=== PATIENT | female | born 1960 | race Caucasian/White ===

== ENCOUNTER 2019-05-29 04:33 | Inpatient (IN) | payer OTHER ==
[~2019-05-29] VITALS: Ht 170.2 cm; Wt 94.4 kg
[2019-05-29] MEDS ORDERED: IPRATROPIUM BROM 0.5 MG/2.5ML INH SOL HHN ONE (07:00)
[2019-05-29] MEDS ORDERED: ALBUTEROL SULF 2.5 MG/0.5ML(0.5%) NEB SOLN HHN ONE (07:00)
[2019-05-29] MEDS ORDERED: methylPREDNISolone SOD SUCC 125 MG/2 ML VL IV ONE (07:00)
[2019-05-29] MEDS ORDERED: LEVOFLOXACIN 500MG 100 ML IV ONE (07:00)
[2019-05-29 07:30] LABS: Basophils # (auto) 0 uL; Basophils % (auto) 0.3 % (0.0-2.0); Eosinophils # (auto) 0.1 uL; Eosinophils % (auto) 0.7 % (0.0-7.0); Lymphocytes # (auto) 2.4 uL; Mean Corpuscular Hemoglobin 31.1 pg (28.0-32.0); Mean Corpuscular Hgb Conc. 34.2 g/dL (32.0-36.0); Mean Corpuscular Volume 90.9 fL (80.0-100.0); Neutrophils # (auto) 10.7 uL; Platelet Count (auto) 340 10^3/uL (140-450); Red Blood Cells 4.51 10^6/uL (4.0-5.20); Red Cell Distribution Width 13.1 % (11.8-14.3); White Blood Cell 14.3 10^3/uL (4.4-10.8)
[2019-05-29 07:38] VITALS: BP 143/82
[2019-05-29 07:41] LABS: Albumin 3.4 g/dL (3.4-5.0); Anion Gap 15 (5-15); Blood Urea Nitrogen 12 mg/dL (7-18); Calcium 8.5 mg/dL (8.5-10.1); Carbon Dioxide 21 mmol/L (21-32); Chloride 107 mmol/L (98-107); Glucose 237 mg/dL (74-106); Magnesium 1.7 mg/dL (1.6-2.6); Potassium 3.2 mmol/L (3.5-5.1); Sodium 143 mmol/L (136-145)
[2019-05-29 07:43] LABS: Alanine Aminotransferase 114 U/L (13-56); Aspartate Aminotransferase 37 U/L (15-37); BUN/Creatinine Ratio 16.9; GFR African American 108 mL/min; GFR Non-African American 89 mL/min
[2019-05-29 07:48] LABS: Alkaline Phosphatase 127 U/L (45-117); Bilirubin, Total 0.8 mg/dL (0.2-1.0); Total Protein 7.2 g/dL (6.4-8.2)
[2019-05-29 07:51] LABS: Lactic Acid w/Reflex 2.5 mmol/L (0.4-2.0)
[2019-05-29] MEDS ORDERED: NITROGLYCERIN 0.4 MG SL TAB SL PRN (10:30)
[2019-05-29] MEDS ORDERED: MORPHINE SULF INJ 2 MG/ML SYRINGE 1ML IV PRN (10:30)
[2019-05-29] MEDS: DOXYCYCLINE 100MG/250ML 250 ML IV SCH ×2 (10:45→22:30)
[2019-05-29] MEDS ORDERED: TEMAZEPAM 15 MG CAP PO PRN (10:45)
[2019-05-29] MEDS ORDERED: ALBUTEROL SULF 2.5 MG/0.5ML(0.5%) NEB SOLN NEB PRN (10:45)
[2019-05-29] MEDS ORDERED: MORPHINE SULFATE 4 MG/ML SYR/VIAL IV PRN (10:45)
[2019-05-29] MEDS ORDERED: LACTULOSE 20Gm/30ML SOLN PO PRN (10:45)
[2019-05-29] MEDS ORDERED: ACETAMINOPHEN 500 MG TAB PO PRN (10:45)
[2019-05-29] MEDS ORDERED: HYDROcodone-ACET 5/325MG TAB PO PRN (10:45)
[2019-05-29] MEDS ORDERED: POTASSIUM EFFERVESENT TAB 25 MEQ PO ONE (10:45)
[2019-05-29] MEDS ORDERED: DEXTROSE (50%) 50ML SYRG IV PRN (10:45)
[2019-05-29] MEDS ORDERED: PROMETHAZINE HCL 25 MG/ML 1ML IV PRN (10:45)
[2019-05-29] MEDS ORDERED: ENALAPRIL MALEATE 2.5 MG TAB PO ONE (11:00)
[2019-05-29] MEDS ORDERED: FUROSEMIDE 40 MG/4 ML VIAL IV ONE (11:00)
[2019-05-29] MEDS ORDERED: PANTOPRAZOLE 40 MG TAB PO ONE (11:00)
[2019-05-29] MEDS ORDERED: ENOXAPARIN SOD 40 MG/0.4 ML SYRINGE SC ONE (11:00)
[2019-05-29 11:02] LABS: Urine Bacteria NONE SEEN /hpf (None Seen); Urine Blood Negative /uL (Negative); Urine Specific Gravity 1.014 (1.001-1.035); Urine WBC <1 /hpf (0 - 5)
[2019-05-29] MEDS ORDERED: methylPREDNISolone SOD SUCC 125 MG/2 ML VL ONE (11:18)
[2019-05-29] MEDS: methylPREDNISolone SOD SUCC 40 MG/ML VL IV SCH ×3 (11:31→23:50)
[2019-05-29 11:39] LABS: Alcohol, Urine < 3.0 mg/dL (0-5); Amphetamine Screen, Urine NEGATIVE (NEGATIVE); Barbiturate Scree,Urine NEGATIVE (NEGATIVE); Benzodiazephine Screen, Urine NEGATIVE (NEGATIVE); Cannabinoid Screen, Urine NEGATIVE (NEGATIVE); Cocaine Screen, Urine NEGATIVE (NEGATIVE); Opiate Scree,Urine NEGATIVE (NEGATIVE); Phencyclidine Screen, Urine NEGATIVE (NEGATIVE)
[2019-05-29] MEDS: ALBUTEROL SULF 2.5 MG/0.5ML(0.5%) NEB SOLN NEB SCH ×2 (12:00→18:22)
[2019-05-29] MEDS: IPRATROPIUM BROM 0.5 MG/2.5ML INH SOL NEB SCH ×2 (12:00→18:22)
--- NOTE | 2019-05-29 12:00 | NUR ---
PT. REQUESTING TO COME OFF OF BIPAP. PT. STATES THAT SHE IS CLOSTERPHOBIC. PLACED PT. ON 3LPM NC AT THIS TIME,SPO2 94%,HR =87.RR=28. NO RESP. DISTRESS NOTED AT THIS TIME, WILL CONTINUE TO MONITOR RESP. STATUS.
[2019-05-29] MEDS: InsuLIN REG 1unit/0.01ml Soln (100units/ml) SC SCH ×4 (12:12→23:51)
[2019-05-29] MEDS: ACCU-CHEK COMFORT CURVE STRIP VI SCH ×4 (12:12→23:51)
[2019-05-29] MEDS: SODIUM CHLOR 0.9% PF (SALINE LOCK) 10ML VIAL/SYR IV SCH ×2 (14:31→21:52)
[2019-05-29] MEDS ORDERED: IOHEXOL 350 MG/ML 100ML IJ ONE (16:20)
[2019-05-29] MEDS ORDERED: InsuLIN REG 1unit/0.01ml Soln (100units/ml) IV ONE (17:15)
[2019-05-29] MEDS: INSULIN LANTUS (GLARGINE) 1 /0.01ml (100units/ml) SC SCH ×2 (17:35→21:51)
[2019-05-30] VITALS (7 sets, daily range): BP systolic 123–135; BP diastolic 57–84
[2019-05-30] MEDS: ALBUTEROL SULF 2.5 MG/0.5ML(0.5%) NEB SOLN NEB SCH ×4 (00:30→19:10)
[2019-05-30] MEDS: IPRATROPIUM BROM 0.5 MG/2.5ML INH SOL NEB SCH ×4 (00:30→19:09)
--- NOTE | 2019-05-30 03:20 | NUR ---
Telemetry admit from ANA MONIQUEDEMARCO COE admitted to Telemetry unit after SBAR received. Patient oriented to SRINATH PAYAN, RN primary RN, unit, room, bed, and unit policies regarding patient care and visiting hours. Patient now on continuous telemetry monitoring, tele box # [id number] and telemetry reading on arrival to unit is SR. Patient placed on bedside oxygen, weighed by bedscale and encouraged to call if they need something. All questions and concerns addressed, patient verbalized understanding. Note:
[2019-05-30] MEDS: InsuLIN REG 1unit/0.01ml Soln (100units/ml) SC SCH ×5 (03:48→20:41)
[2019-05-30] MEDS: ACCU-CHEK COMFORT CURVE STRIP VI SCH ×5 (03:48→20:42)
[2019-05-30] MEDS ORDERED: METF-370 PO (05:15)
[2019-05-30] MEDS ORDERED: GLYB2.5T8 PO (05:15)
--- NOTE | 2019-05-30 06:05 | NUR ---
Respiratory note: PATIENT FOUND OFF CPAP AND ON R/A, SPO2 95%. NO DISTRESS NOTED
[2019-05-30] MEDS: SODIUM CHLOR 0.9% PF (SALINE LOCK) 10ML VIAL/SYR IV SCH ×3 (06:17→22:45)
[2019-05-30] MEDS: methylPREDNISolone SOD SUCC 40 MG/ML VL IV SCH ×3 (06:17→17:48)
[2019-05-30] MEDS: INSULIN LANTUS (GLARGINE) 1 /0.01ml (100units/ml) SC SCH ×2 (06:18→22:45)
--- NOTE | 2019-05-30 08:00 | NUR ---
Opening Shift Note Assumed care of patient, awake, alert and oriented X4. No S/S of distress/SOB or pain. O2 @ 2 LPM via nasal cannula with sats @ 96%. Tele# 39, sinus rhythm @ 77 bpm. IV to left antecubital, 20 gauge, patent and saline locked. Instructed on POC and to call for assist PRN, verbalized understanding. Bed locked, in lowest position, devante light within reach, will continue to monitor for changes Q1hr and PRN.
[2019-05-30 08:18] LABS: Basophils # (auto) 0 uL; Basophils % (auto) 0.2 % (0.0-2.0); Eosinophils # (auto) 0 uL; Hematocrit 39.6 % (36.0-46.0); Hemoglobin 13.2 g/dL (12.2-16.2); Lymphocytes # (auto) 0.8 uL; Lymphocytes % (auto) 7.2 % (10.0-50.0); Mean Corpuscular Hemoglobin 30.2 pg (28.0-32.0); Mean Corpuscular Hgb Conc. 33.4 g/dL (32.0-36.0); Mean Corpuscular Volume 90.4 fL (80.0-100.0); Monocytes # (auto) 0.4 uL; Monocytes % (auto) 3.3 % (0.0-12.0); Neutrophils # (auto) 10.4 uL; Neutrophils % (auto) 89.3 % (37.0-80.0); Platelet Count (auto) 307 10^3/uL (140-450); Red Blood Cells 4.38 10^6/uL (4.0-5.20); Red Cell Distribution Width 13.1 % (11.8-14.3); White Blood Cell 11.6 10^3/uL (4.4-10.8)
[2019-05-30 08:50] LABS: BUN/Creatinine Ratio 22.7; Calcium 8.9 mg/dL (8.5-10.1); Potassium 3.3 mmol/L (3.5-5.1)
[2019-05-30 08:53] LABS: Bilirubin, Total 0.6 mg/dL (0.2-1.0); Total Protein 6.8 g/dL (6.4-8.2)
[2019-05-30] MEDS ORDERED: POTASSIUM EFFERVESENT TAB 25 MEQ PO ONE (10:00)
[2019-05-30] MEDS ORDERED: FUROSEMIDE 40 MG/4 ML VIAL IV SCH (10:00)
--- NOTE | 2019-05-30 10:00 | NUR ---
ROUNDS Dr Davis at bedside for rounds, new orders received and followed through. Patient updated on plan of care, verbalized understanding.
[2019-05-30] MEDS: POTASSIUM CHL 20 Meq TABLET PO SCH (11:27)
[2019-05-30] MEDS: PANTOPRAZOLE 40 MG TAB PO SCH (11:27)
[2019-05-30] MEDS: ENOXAPARIN SOD 40 MG/0.4 ML SYRINGE SC SCH (11:28)
[2019-05-30] MEDS: ENALAPRIL MALEATE 2.5 MG TAB PO SCH (11:28)
[2019-05-30] MEDS: DOXYCYCLINE 100MG/250ML 250 ML IV SCH ×2 (11:28→22:45)
[2019-05-30] MEDS ORDERED: VANCOMYCIN PER PHARMACY 0 MG IV SCH (11:30)
[2019-05-30] MEDS ORDERED: VANCOMYCIN 1GM/250ML 250 ML IV ONE (14:00)
--- NOTE | 2019-05-30 17:46 | NUR ---
IV removal IV DC'd with sterile technique to the left antecubital due to leaking, catheter fully intact. Pressure dressing applied to site. Patient tolerated procedure well. Discharged with aftercare instructions per MD. IV insertion IV access obtained, via clean sterile technique by inserting 20 gauge catheter at right forearm after 1 attempt. IV secured properly. No trauma to site. Patient tolerated well.
--- NOTE | 2019-05-30 19:25 | NUR ---
Opening Shift Note Assumed care of patient, awake and alert. No S/S of distress/SOB or pain. Side rails up x2 and call light is within reach. Instructed on POC and to call for assist PRN, will continue to monitor for changes Q1hr and PRN.
[2019-05-31] MEDS: ALBUTEROL SULF 2.5 MG/0.5ML(0.5%) NEB SOLN NEB SCH ×5 (00:03→23:36)
[2019-05-31] MEDS: IPRATROPIUM BROM 0.5 MG/2.5ML INH SOL NEB SCH ×5 (00:03→23:36)
[2019-05-31] MEDS: methylPREDNISolone SOD SUCC 40 MG/ML VL IV SCH ×4 (00:08→22:24)
[2019-05-31] MEDS: ACCU-CHEK COMFORT CURVE STRIP VI SCH ×6 (00:09→22:25)
[2019-05-31] MEDS: VANCOMYCIN 1GM/250ML 250 ML IV SCH ×2 (02:01→13:45)
[2019-05-31 05:34] VITALS: BP 126/78
[2019-05-31] MEDS: InsuLIN REG 1unit/0.01ml Soln (100units/ml) SC SCH ×6 (05:41→22:25)
[2019-05-31] MEDS: INSULIN LANTUS (GLARGINE) 1 /0.01ml (100units/ml) SC SCH ×2 (06:15→22:25)
[2019-05-31] MEDS: SODIUM CHLOR 0.9% PF (SALINE LOCK) 10ML VIAL/SYR IV SCH ×3 (06:15→22:25)
--- NOTE | 2019-05-31 08:00 | NUR ---
Opening Shift Note Assumed care of patient, awake, alert and oriented X4. No S/S of distress/SOB or pain. O2 @ 2 LPM via nasal cannula with sats @ 96%. Tele# 39, sinus rhythm @ 73 bpm. IV to right forearm, 20 gauge, patent and saline locked. Instructed on POC and to call for assist PRN, verbalized understanding. Bed locked, in lowest position, devante light within reach, will continue to monitor for changes Q1hr and PRN.
[2019-05-31 08:34] VITALS: BP 139/73
[2019-05-31] MEDS ORDERED: DEXTROSE (50%) 50ML SYRG IV PRN (09:45)
--- NOTE | 2019-05-31 10:02 | NUR ---
KEEGAN Lockwood at bedside for rounds, new orders received and followed through. Patient and patient's family at bedside updated on plan of care, verbalized understanding.
[2019-05-31] MEDS: BUDESONIDE (INHALATION) 0.5 MG/2 ML NEB NEB SCH ×2 (11:38→18:10)
[2019-05-31] MEDS: cefTRIAXone 1GM/50ML D5W 50 ML IV SCH (11:42)
[2019-05-31] MEDS: FUROSEMIDE 40 MG/4 ML VIAL IV SCH (11:42)
[2019-05-31] MEDS: METOPROLOL TARTRATE 25 MG TAB PO SCH ×2 (11:43→22:24)
[2019-05-31] MEDS: PANTOPRAZOLE 40 MG TAB PO SCH (11:43)
[2019-05-31] MEDS: POTASSIUM CHL 20 Meq TABLET PO SCH (11:43)
[2019-05-31] MEDS: ENALAPRIL MALEATE 2.5 MG TAB PO SCH (11:44)
[2019-05-31] MEDS: ENOXAPARIN SOD 40 MG/0.4 ML SYRINGE SC SCH (11:44)
[2019-05-31] MEDS: Glucerna Carbsteady SHAKE Vanilla 8oz PO SCH ×2 (12:00→18:02)
[2019-05-31 12:38] VITALS: BP 123/69
[2019-05-31 16:42] VITALS: BP 128/71
--- NOTE | 2019-05-31 19:02 | NUR ---
Care endorsed to ANDREW Razo, night nurse.
--- NOTE | 2019-05-31 19:25 | NUR ---
Opening Shift Note Assumed care of patient, awake and alert. No S/S of distress/SOB or pain. Instructed on POC and to call for assist PRN, will continue to monitor for changes Q1hr and PRN.
[2019-05-31 21:51] VITALS: BP 138/72
[2019-06-01] MEDS: VANCOMYCIN 1GM/250ML 250 ML IV SCH (02:08)
[2019-06-01 04:57] VITALS: BP 126/83
[2019-06-01 05:43] LABS: Basophils # (auto) 0 uL; Basophils % (auto) 0.2 % (0.0-2.0); Eosinophils # (auto) 0 uL; Hematocrit 40.2 % (36.0-46.0); Hemoglobin 13.6 g/dL (12.2-16.2); Lymphocytes % (auto) 6.9 % (10.0-50.0); Mean Corpuscular Hemoglobin 30.9 pg (28.0-32.0); Mean Corpuscular Hgb Conc. 33.8 g/dL (32.0-36.0); Mean Corpuscular Volume 91.4 fL (80.0-100.0); Monocytes # (auto) 0.7 uL; Monocytes % (auto) 4.7 % (0.0-12.0); Neutrophils # (auto) 13.4 uL; Neutrophils % (auto) 88.2 % (37.0-80.0); Platelet Count (auto) 353 10^3/uL (140-450); Red Cell Distribution Width 13.1 % (11.8-14.3); White Blood Cell 15.1 10^3/uL (4.4-10.8)
[2019-06-01] MEDS: IPRATROPIUM BROM 0.5 MG/2.5ML INH SOL NEB SCH ×3 (05:53→19:06)
[2019-06-01] MEDS: ALBUTEROL SULF 2.5 MG/0.5ML(0.5%) NEB SOLN NEB SCH ×3 (05:53→19:06)
[2019-06-01] MEDS: BUDESONIDE (INHALATION) 0.5 MG/2 ML NEB NEB SCH ×2 (05:53→19:06)
[2019-06-01 06:07] LABS: BUN/Creatinine Ratio 37.2; Calcium 8.8 mg/dL (8.5-10.1)
[2019-06-01] MEDS: InsuLIN REG 1unit/0.01ml Soln (100units/ml) SC SCH ×4 (06:46→22:40)
[2019-06-01] MEDS: SODIUM CHLOR 0.9% PF (SALINE LOCK) 10ML VIAL/SYR IV SCH ×3 (06:46→22:27)
[2019-06-01] MEDS: INSULIN LANTUS (GLARGINE) 1 /0.01ml (100units/ml) SC SCH ×2 (06:46→22:40)
[2019-06-01] MEDS: ACCU-CHEK COMFORT CURVE STRIP VI SCH ×4 (06:47→22:41)
--- NOTE | 2019-06-01 07:20 | NUR ---
CLOSING SHIFT NOTE Care has been endorsed to Maria Luz day shift RN.
[2019-06-01] MEDS: Glucerna Carbsteady SHAKE Vanilla 8oz PO SCH ×3 (07:34→17:50)
[2019-06-01 09:00] VITALS: BP 133/81
[2019-06-01] MEDS: FUROSEMIDE 40 MG/4 ML VIAL IV SCH ×2 (10:35→17:50)
[2019-06-01] MEDS: ENOXAPARIN SOD 40 MG/0.4 ML SYRINGE SC SCH (10:35)
[2019-06-01] MEDS: methylPREDNISolone SOD SUCC 40 MG/ML VL IV SCH ×2 (10:35→22:27)
[2019-06-01] MEDS: POTASSIUM CHL 20 Meq TABLET PO SCH (10:36)
[2019-06-01] MEDS: ENALAPRIL MALEATE 2.5 MG TAB PO SCH (10:37)
[2019-06-01] MEDS: PANTOPRAZOLE 40 MG TAB PO SCH (10:37)
[2019-06-01] MEDS: METOPROLOL SUCCINATE XL 50 MG TAB PO SCH (10:38)
[2019-06-01] MEDS ORDERED: ADENOSINE 80 MG in GIVE UN-DILUTED 0 ML IV STA (10:40)
--- NOTE | 2019-06-01 11:03 | NUR ---
[facility] Call received from Venus, Show Host/Hostess from [facility]. Updated on plan of care, all requested information given. Informed per Jacquelyn Milner, patient is not cleared from Cardiology, patient needs an Angiogram, verbalized understanding.
[2019-06-01] MEDS ORDERED: SODIUM CHLORIDE 0.9% 1,000 ML IV SCH (11:42)
[2019-06-01] MEDS ORDERED: VANCOMYCIN 1GM/250ML 250 ML IV SCH ×2 (12:00→16:00)
--- NOTE | 2019-06-01 12:00 | NUR ---
SEAMING MACHINE OPERATOR Patient taken to Tube Cutter Operator via bed, no distress noted upon departure.
[2019-06-01] MEDS ORDERED: LIDOCAINE 2%HCL (LOCAL ANESTH.) INJ 20ML MDV ONE (12:18)
[2019-06-01] MEDS ORDERED: IOHEXOL 350 MG/ML 100ML IJ ONE (12:18)
[2019-06-01] MEDS ORDERED: ANGIOMAX 250 MG VIAL IV ONE (12:19)
[2019-06-01] MEDS ORDERED: fentaNYL CITRATE 100 MCG/2 ML VL ONE (12:19)
[2019-06-01] MEDS ORDERED: MIDAZOLAM HCL 1MG/1ML-2 ML VIAL ONE (12:20)
[2019-06-01] MEDS ORDERED: SODIUM CHL 0.9% 0 ML ONE (12:20)
[2019-06-01] MEDS: cefTRIAXone 1GM/50ML D5W 50 ML IV SCH (12:44)
[2019-06-01 13:00] VITALS: BP 126/78
--- NOTE | 2019-06-01 13:45 | NUR ---
Patient return from environmental laboratory technician Patient in labor economics teacher received report from Albina MORALES. Instructed to keep patient flat until 1500. Patient returned to the unit at 1345. Patient vitals are stable. Right groin palpable and soft, no hematoma's noted, dressing clean, dry, and intact. Patient lying flat, resting comfortably.
[2019-06-01 14:40] LABS: Basophils # (auto) 0 uL; Basophils % (auto) 0.2 % (0.0-2.0); Eosinophils # (auto) 0 uL; Hematocrit 42.5 % (36.0-46.0); Hemoglobin 14.2 g/dL (12.2-16.2); Lymphocytes # (auto) 0.8 uL; Lymphocytes % (auto) 6.6 % (10.0-50.0); Mean Corpuscular Hemoglobin 30.2 pg (28.0-32.0); Mean Corpuscular Hgb Conc. 33.5 g/dL (32.0-36.0); Mean Corpuscular Volume 90.1 fL (80.0-100.0); Monocytes # (auto) 0.6 uL; Monocytes % (auto) 4.5 % (0.0-12.0); Neutrophils # (auto) 11.3 uL; Neutrophils % (auto) 88.7 % (37.0-80.0); Platelet Count (auto) 363 10^3/uL (140-450); Red Blood Cells 4.72 10^6/uL (4.0-5.20); White Blood Cell 12.7 10^3/uL (4.4-10.8)
[2019-06-01 15:07] LABS: INR 1.01 (0.9-1.15); Partial Thromboplastin Time 26.4 sec (23.64-32.05)
[2019-06-01 15:11] LABS: BUN/Creatinine Ratio 35.9; Calcium 8.5 mg/dL (8.5-10.1); Potassium 3.8 mmol/L (3.5-5.1)
[2019-06-01] MEDS ORDERED: HYDROcodone-ACET 5/325MG TAB PO PRN (15:15)
[2019-06-01] MEDS ORDERED: SODIUM CHLORIDE 0.9% 500 ML IV SCH (15:30)
[2019-06-01] MEDS ORDERED: MORPHINE SULF INJ 2 MG/ML SYRINGE 1ML IV PRN (15:30)
--- NOTE | 2019-06-01 15:57 | NUR ---
FAXED TRANSFER ORDER TO [facility]
[2019-06-01 17:00] VITALS: BP 138/82
--- NOTE | 2019-06-01 19:21 | NUR ---
Care endorsed to ANDREW Holden, night nurse.
--- NOTE | 2019-06-01 19:25 | NUR ---
Opening Shift Note Report received from day shift RN. Assumed care of patient. Patient sitting in bed awake and alert x4. Family at bedside. No S/S of distress/SOB noted and patient denies pain at this time. Bed locked, in lowest position, and side rails up x2. Instructed on POC and to call for assist PRN, will continue to monitor for changes Q1hr and PRN. Addendum: 06/02/19 at 0605 by LIAN PERLA RN RN DRESSING TO RIGHT GROIN CDI AND NO SWELLING AT THE SITE.
[2019-06-01 22:00] VITALS: BP 135/72
[2019-06-01] MEDS: ATORVASTATIN 20 MG TAB PO SCH (22:28)
[2019-06-02] MEDS: ALBUTEROL SULF 2.5 MG/0.5ML(0.5%) NEB SOLN NEB SCH ×4 (00:12→19:04)
[2019-06-02] MEDS: IPRATROPIUM BROM 0.5 MG/2.5ML INH SOL NEB SCH ×4 (00:12→19:07)
[2019-06-02 03:11] VITALS: BP 135/72
--- NOTE | 2019-06-02 04:12 | NUR ---
Respiratory note: PT FOUND OFF CPAP UNIT AT THIS TIME. PT STATED THAT SHE IS DONE WEARING IT FOR NOW. NO DISTRESS NOTED.
[2019-06-02 06:00] VITALS: BP 122/87
[2019-06-02] MEDS: BUDESONIDE (INHALATION) 0.5 MG/2 ML NEB NEB SCH ×2 (06:03→19:07)
[2019-06-02] MEDS: FUROSEMIDE 40 MG/4 ML VIAL IV SCH ×2 (06:22→18:19)
[2019-06-02] MEDS: SODIUM CHLOR 0.9% PF (SALINE LOCK) 10ML VIAL/SYR IV SCH ×3 (06:22→21:14)
[2019-06-02] MEDS: InsuLIN REG 1unit/0.01ml Soln (100units/ml) SC SCH ×4 (06:34→21:26)
[2019-06-02] MEDS: INSULIN LANTUS (GLARGINE) 1 /0.01ml (100units/ml) SC SCH ×2 (06:35→21:26)
[2019-06-02] MEDS: ACCU-CHEK COMFORT CURVE STRIP VI SCH ×4 (06:36→21:26)
[2019-06-02 07:03] LABS: Potassium 3.9 mmol/L (3.5-5.1)
[2019-06-02 07:05] LABS: Basophils # (auto) 0 uL; Basophils % (auto) 0.1 % (0.0-2.0); Eosinophils # (auto) 0 uL; Hematocrit 42.7 % (36.0-46.0); Hemoglobin 14.6 g/dL (12.2-16.2); Lymphocytes # (auto) 0.8 uL; Lymphocytes % (auto) 6.6 % (10.0-50.0); Mean Corpuscular Hemoglobin 31.1 pg (28.0-32.0); Mean Corpuscular Hgb Conc. 34.1 g/dL (32.0-36.0); Mean Corpuscular Volume 91.2 fL (80.0-100.0); Monocytes # (auto) 0.8 uL; Neutrophils % (auto) 87.3 % (37.0-80.0); Platelet Count (auto) 365 10^3/uL (140-450); Red Blood Cells 4.68 10^6/uL (4.0-5.20); Red Cell Distribution Width 12.9 % (11.8-14.3); White Blood Cell 12.6 10^3/uL (4.4-10.8)
[2019-06-02 07:26] LABS: Albumin 2.7 g/dL (3.4-5.0); BUN/Creatinine Ratio 42.5; Bilirubin, Total 0.4 mg/dL (0.2-1.0); Calcium 8.6 mg/dL (8.5-10.1); Magnesium 2.3 mg/dL (1.6-2.6); Total Protein 6.3 g/dL (6.4-8.2)
--- NOTE | 2019-06-02 07:43 | NUR ---
Opening Shift Note Assumed care of patient, awake and alert, sitting up in bed uncomplaining. No S/S of distress/SOB or pain. Instructed on POC and to call for assist PRN, will continue to monitor for changes Q1hr and PRN. Awaiting transfer to [place].
[2019-06-02] MEDS: Glucerna Carbsteady SHAKE Vanilla 8oz PO SCH ×3 (08:00→18:20)
--- NOTE | 2019-06-02 08:25 | NUR ---
Breakfast Patient notified me that she did not receive breakfast tray. Checked and realized patient has no diet order. Order placed as per written notes.
[2019-06-02 09:00] VITALS: BP 117/71
[2019-06-02] MEDS: methylPREDNISolone SOD SUCC 40 MG/ML VL IV SCH (09:53)
[2019-06-02] MEDS: POTASSIUM CHL 20 Meq TABLET PO SCH (09:53)
[2019-06-02] MEDS: cefTRIAXone 1GM/50ML D5W 50 ML IV SCH (09:53)
[2019-06-02] MEDS: ENOXAPARIN SOD 40 MG/0.4 ML SYRINGE SC SCH (09:54)
[2019-06-02] MEDS: PANTOPRAZOLE 40 MG TAB PO SCH (09:54)
[2019-06-02] MEDS: METOPROLOL SUCCINATE XL 50 MG TAB PO SCH (09:54)
[2019-06-02] MEDS ORDERED: ASPirin-EC 81 mg tab PO SCH (10:00)
--- NOTE | 2019-06-02 11:47 | NUR ---
Accu Check Accu Check at 401. Patient states she had some orange slices about 20 minutes ago. Will administer 15 units, recheck. and garret GAFFNEY.
[2019-06-02 13:00] VITALS: BP 128/53
--- NOTE | 2019-06-02 13:30 | NUR ---
Family members at bedside.
[2019-06-02 17:00] VITALS: BP 129/81
--- NOTE | 2019-06-02 18:30 | NUR ---
Maninder SCHNEIDER called Update given on patient. She states that transfer likely tonight.
--- NOTE | 2019-06-02 19:20 | NUR ---
Opening Shift Note Report received from day shift RN. Assumed care of patient. Patient sitting in bed awake and alert x4. Family at bedside. No S/S of distress/SOB noted and patient denies pain at this time. Dressing to right groin CDI and no swelling noted. Bed locked, in lowest position, and side rails up x2. Instructed on POC and to call for assist PRN, will continue to monitor for changes Q1hr and PRN.
--- NOTE | 2019-06-02 21:13 | NUR ---
HOSPITALIST PAGED FOR CRITICAL BLOOD GLUCOSE LEVELS [phone]. AWAITING CALL BACK.
--- NOTE | 2019-06-02 21:40 | NUR ---
HOSPITALIST CALLED BACK. NO NEW ORDERS.
[2019-06-02] MEDS: ATORVASTATIN 20 MG TAB PO SCH (21:41)
[2019-06-02 22:00] VITALS: BP 139/68
[2019-06-02] MEDS ORDERED: SACUBITRIL-VALSARTAN 24mg/26mg TAB PO SCH (22:00)
[2019-06-03] MEDS: IPRATROPIUM BROM 0.5 MG/2.5ML INH SOL NEB SCH (00:50)
[2019-06-03] MEDS: ALBUTEROL SULF 2.5 MG/0.5ML(0.5%) NEB SOLN NEB SCH (00:50)
--- NOTE | 2019-06-03 01:00 | NUR ---
[facility] credit representative Libra called regarding bed availability at [place] location and verified transfer. Report given to ANDREW Cordova.
[2019-06-03 01:12] VITALS: BP 139/68
--- NOTE | 2019-06-03 02:00 | NUR ---
[facility]SFER TO [facility] Patient is being transferred to [facility]. No s/s of SOB or distress noted and patient denies pain. VSS. Patient is to follow up with accepting doctor at the receiving facility.
--- NOTE | 2019-06-03 02:00 | NUR ---
BLOOD GLUCOSE RECHECK: 144
[2019-06-03] MEDS ORDERED: methylPREDNISolone SOD SUCC 40 MG/ML VL IV SCH (10:00)
== END 2019-06-03 02:00 | disposition short-term general hospital (02) | DRG 871 ==
LOC: ER 04:33 → EDBD 04:33 → TELE 04:34 → TELE-WESTW 05-30 03:34
PROVIDERS: ADMIT Internal Medicine; ATTEND Internal Medicine
PROC: 5A09357 Assistance with Respiratory Ventilation, Less than 24 Consecutive Hours, Continuous Positive Airway Pressure (ICD-10-PCS; 2019-05-29)
PROC: 5A09357 Assistance with Respiratory Ventilation, Less than 24 Consecutive Hours, Continuous Positive Airway Pressure (ICD-10-PCS; 2019-05-30)
PROC: 5A09357 Assistance with Respiratory Ventilation, Less than 24 Consecutive Hours, Continuous Positive Airway Pressure (ICD-10-PCS; 2019-05-31)
PROC: 4A023N7 Measurement of Cardiac Sampling and Pressure, Left Heart, Percutaneous Approach (ICD-10-PCS; principal; 2019-06-01)
PROC: B2111ZZ Fluoroscopy of Multiple Coronary Arteries using Low Osmolar Contrast (ICD-10-PCS; 2019-06-01)
PROC: B2151ZZ Fluoroscopy of Left Heart using Low Osmolar Contrast (ICD-10-PCS; 2019-06-01)
PROC: 5A09357 Assistance with Respiratory Ventilation, Less than 24 Consecutive Hours, Continuous Positive Airway Pressure (ICD-10-PCS; 2019-06-01)
PROC: 5A09357 Assistance with Respiratory Ventilation, Less than 24 Consecutive Hours, Continuous Positive Airway Pressure (ICD-10-PCS; 2019-06-02)
DX: A41.9 Sepsis, unspecified organism (principal); I50.43 Acute on chronic combined systolic (congestive) and diastolic (congestive) heart failure; J96.00 Acute respiratory failure, unspecified whether with hypoxia or hypercapnia; E44.0 Moderate protein-calorie malnutrition; I42.0 Dilated cardiomyopathy; J44.1 Chronic obstructive pulmonary disease with (acute) exacerbation; E11.9 Type 2 diabetes mellitus without complications; Z68.32 Body mass index [BMI] 32.0-32.9, adult; E66.01 Morbid (severe) obesity due to excess calories; E78.5 Hyperlipidemia, unspecified; G47.33 Obstructive sleep apnea (adult) (pediatric); I11.0 Hypertensive heart disease with heart failure; I25.10 Atherosclerotic heart disease of native coronary artery without angina pectoris; Z72.0 Tobacco use; Z71.6 Tobacco abuse counseling; Z79.84 Long term (current) use of oral hypoglycemic drugs; G89.29 Other chronic pain; M54.9 Dorsalgia, unspecified
CPT/HCPCS: 36415; 36600; 71045; 71046; 71275; 80048; 80053; 80061; 80202; 80307; 81001; 82550; 82805; 82962; 83036; 83605; 83735; 83880; 84484; 85025; 85379; 85610; 85652; 85730; 86141; 86850; 86900; 86901; 87040; 87077; 87086; 87186; 93005; 93306; 94640; 94660; 94761; 96365; 96375; 99152; 99291; G0378; J0153; J0696; J1815; J1956; J2250; J3490